=== PATIENT | female | born 1990 | race African-American/Black ===

== ENCOUNTER 2016-07-15 02:28 | Emergency (ER) | payer OTHER ==
--- NOTE | 2016-07-15 02:51 | PDOC ---
History of Present Illness - General History Source: Patient <Steve Crabtree - Last Filed: 07/15/16 03:08> - General History Source: Patient Exam Limitations: No Limitations - History of Present Illness Initial Comments: 07/15/16 03:10 The patient is a 26 year old female with no significant past medical history who presents to the Emergency Department for further evaluation of worsening abdominal pain for 4 days. The patient states that she has had intermittent abdominal pain for 2 years and follows with a Culinary Art Teacher (Dr. Meehan) who recently moved practices. The patient reports that a few months ago she was diagnosed with H Pylori and has been noncompliant with medications because she lost them. The patient reports associated nausea and white foamy vomited anytime she eats. The patient notes that she is able to hold food down when she smokes marijuana before eating. <Arturo Melgar - Last Filed: 07/15/16 03:11> - General Stated Complaint: STOMACH PAIN Time Seen by Provider: 07/15/16 02:50 Past History - Psycho/Social/Smoking Cessation Hx Anxiety: No Suicidal Ideation: No Smoking History: Never smoked Hx Alcohol Use: Yes Drug/Substance Use Hx: No Substance Use Type: Alcohol <LeydaSteve - Last Filed: 07/15/16 03:08> <Arturo Melgar - Last Filed: 07/15/16 03:11> - Past Medical History Allergies/Adverse Reactions: Allergies Allergy/AdvReac Type Severity Reaction Status Date / Time No Known Allergies Allergy Verified 07/15/16 02:55 Home Medications: Ambulatory Orders Famotidine [Pepcid] 40 mg PO BID #60 tablet 07/15/16 Ondansetron [Zofran *Odt*] 4 mg SL TID #30 od.tablet 07/15/16 Review of Systems - Review of Systems Able to Perform ROS?: Yes Comments:: 07/15/16 03:10 CONSTITUTIONAL: Absent: fever, chills, diaphoresis, generalized weakness, malaise, loss of appetite HEENT: Absent: rhinorrhea, nasal congestion, throat pain, throat swelling, difficulty swallowing, mouth swelling, ear pain, eye pain, visual Changes CARDIOVASCULAR: Absent: chest pain, syncope, palpitations, irregular heart rate, lightheadedness , peripheral edema RESPIRATORY: Absent: cough, shortness of breath, dyspnea with exertion, orthopnea, wheezing, stridor, hemoptysis GASTROINTESTINAL: Present: Abdominal pain, nausea, vomiting Absent: diarrhea, constipation, melena, hematochezia GENITOURINARY: Absent: dysuria, frequency, urgency, hesitancy, hematuria, flank pain, genital pain MUSCULOSKELETAL: Absent: myalgia, arthralgia, joint swelling SKIN: Absent: rash, itching, pallor HEMATOLOGIC/IMMUNOLOGIC: Absent: easy bleeding, easy bruising, lymphadenopathy, frequent infections ENDOCRINE: Absent: unexplained weight gain, unexplained weight loss, heat intolerance, cold intolerance NEUROLOGIC: Absent: headache, focal weakness or paresthesias, dizziness, unsteady gait, seizure, mental status changes, bladder or bowel incontinence PSYCHIATRIC: Absent: anxiety, depression, suicidal or homicidal ideation, hallucinations. <Arturo Melgar - Last Filed: 07/15/16 03:11> *Physical Exam - Vital Signs Last Vital Signs Temp Pulse Resp BP Pulse Ox 97 H 14 148/93 100 07/15/16 02:55 07/15/16 02:55 07/15/16 02:55 07/15/16 02:55 - Physical Exam Comments: 07/15/16 03:10 GENERAL: Well developed, well nourished. Awake and alert. In no acute distress. HEENT: Normocephalic, atraumatic. PERRLA, EOMI. No conjunctival pallor. Sclerae are non -icteric. Moist mucous membranes. Oropharynx is clear. NECK: Supple. Full ROM. No JVD. Carotid pulses 2+ and symmetric, without bruits. No thyromegaly. No lymphadenopathy. CARDIOVASCULAR: Regular rate and rhythm. No murmurs, rubs, or gallops. Distal pulses are 2+ and symmetric. PULMONARY: No evidence of respiratory distress. Lungs clear to auscultation bilaterally. No wheezing, rales or rhonchi. ABDOMINAL: Soft. Non-tender. Non-distended. No rebound or guarding. No organomegaly. Normoactive bowel sounds. MUSCULOSKELETAL Normal range of motion at all joints. No bony deformities or tenderness. No CVA tenderness. EXTREMITIES: No cyanosis. No clubbing. No edema. No calf tenderness. SKIN: Warm and dry. Normal capillary refill. No rashes. No jaundice. NEUROLOGICAL: Alert, awake, appropriate. Cranial nerves 2-12 intact. No deficits to light touch and temperature in face, upper extremities and lower extremities. No motor deficits in the in face, upper extremities and lower extremities. Normoreflexic in the upper and lower extremities. Normal speech. Toes are downgoing bilaterally. Gait is normal without ataxia. PSYCHIATRIC: Cooperative. Good eye contact. Appropriate mood and affect. <Arturo Melgar - Last Filed: 07/15/16 03:11> Medical Decision Making - Medical Decision Making 07/15/16 03:09 Dr. Crabtree: The scribe's documentation has been prepared under my direction and personally reviewed by me in its entirery. I confirm that the note above accurately reflects all work, treatment, procedures, and medical decision making performed by me. <Steve Crabtree - Last Filed: 07/15/16 03:08> *DC/Admit/Observation/Transfer - Discharge Dispostion Admit: No <Steve Crabtree - Last Filed: 07/15/16 03:08> - Attestations Scribe Attestion: 07/15/16 03:11 Documentation prepared by Arturo Melgar, acting as medical billing and coding instructor for Steve Crabtree MD. <Arturo Melgar - Last Filed: 07/15/16 03:11> Diagnosis at time of Disposition: Abdominal pain Qualifiers: Abdominal location: generalized Qualified Code(s): R10.84 - Generalized abdominal pain - Discharge Dispostion Disposition: HOME Condition at time of disposition: Stable - Prescriptions Prescriptions: Famotidine [Pepcid] 40 mg PO BID #60 tablet Ondansetron [Zofran *Odt*] 4 mg SL TID #30 od.tablet - Referrals Referrals: Darren King MD [Staff Physician] - - Patient Instructions Printed Discharge Instructions: DI for Abdominal Pain-Adult
[2016-07-15 02:57] VITALS: BP 148/93; PULSE 97; BMI 34.3
[2016-07-15] MEDS ORDERED: ONDANSETRON *ODT* 4 MG TABLET SL ONE (03:06)
[2016-07-15] MEDS ORDERED: PANTOPRAZOLE 40 MG TABLET (FP) PO ONE (03:06)
[2016-07-15] MEDS ORDERED: PANTOPRAZOLE 40 MG TABLET (FP) ONE (03:10)
[2016-07-15] MEDS ORDERED: ONDANSETRON *ODT* 4 MG TABLET ONE (03:10)
[2016-07-15 03:35] LABS: URINE APPEARANCE SLCLOUDY; URINE BILIRUBIN NEGATIVE (NEGATIVE); URINE BLOOD NEGATIVE (NEGATIVE); URINE COLOR YELLOW; URINE GLUCOSE (UA) NEGATIVE (NEGATIVE); URINE KETONE 1+ (NEGATIVE); URINE NITRITE NEGATIVE (NEGATIVE); URINE UROBILINOGEN NEGATIVE E.U./dl (0.2-1.0)
[2016-07-15 03:38] LABS: URINE LEUK ESTERASE TRACE (NEGATIVE); URINE PROTEIN 1+ (NEGATIVE)
[2016-07-15 03:40] LABS: URINE BACTERIA RARE /hpf (NONE SEEN); URINE HYALINE CAST 12 /lpf; URINE MUCUS MANY; URINE RBC 4 /hpf (0-3); URINE WBC 10 /hpf (3-5)
== END 2016-07-15 03:32 | disposition home or self-care (01) ==
LOC: JER 02:28
DX: R10.84 Generalized abdominal pain (principal)
CPT/HCPCS: 81003; 81015; 84703; 87086; 99282-25

== ENCOUNTER 2018-07-08 21:45 | Emergency (ER) | payer OTHER ==
[2018-07-08 21:51] VITALS: BP 120/73; PULSE 87; TEMP 97.2; BMI 29.2
--- NOTE | 2018-07-08 22:29 | PDOC ---
History of Present Illness - General Chief Complaint: Laceration Stated Complaint: EYEBROW LACERATION Time Seen by Provider: 07/08/18 22:00 History Source: Patient Exam Limitations: No Limitations - History of Present Illness Initial Comments: 07/08/18 22:24 Patient states this morning while in [place] struck her left brow and headboard incurring a small laceration to the lateral aspect of brow. States had to catch bus back to the city and was unable to be seen and any emergency department. Denies LOC but states was mildly dazed at the time. Used some hydrogen peroxide and some Neosporin to clean wound but came for evaluation. Denies any drainage from nose or ears, denies any other injury. Occurred: reports: this morning (approximately 13 hours ago) Severity: reports: mild, moderate Pain Location: reports: face Loss of Consciousness: no loss of consciousness Associated Symptoms (Fall): denies symptoms Past History - Travel Traveled outside of the country in the last 30 days: No Close contact w/someone who was outside of country & ill: No - Past Medical History Allergies/Adverse Reactions: Allergies Allergy/AdvReac Type Severity Reaction Status Date / Time No Known Allergies Allergy Verified 07/29/17 10:44 Home Medications: Ambulatory Orders Clindamycin [Cleocin -] 300 mg PO TID #21 capsule 07/29/17 Cancer: No Cardiac Disorders: No CVA: No COPD: No - Surgical History Cholecystectomy: No GI Surgery: No Lung Surgery: No - Suicide/Smoking/Psychosocial Hx Smoking History: Never smoked Have you smoked in the past 12 months: No Information on smoking cessation initiated: No Hx Alcohol Use: No Drug/Substance Use Hx: No Substance Use Type: Alcohol Review of Systems - Review of Systems Able to Perform ROS?: Yes Is the patient limited [place] Citizen proficient: Yes Constitutional: Yes: Symptoms Reported, See HPI, Malaise Respiratory: No: Symptoms reported Cardiac (ROS): No: Symptoms Reported Integumentary: Yes: Symptoms Reported, See HPI, Bruising All Other Systems: Reviewed and Negative *Physical Exam - Vital Signs Last Vital Signs Temp Pulse Resp BP Pulse Ox 97.2 F L 87 20 120/73 100 07/08/18 21:48 07/08/18 21:48 07/08/18 21:48 07/08/18 21:48 07/08/18 21:48 - Physical Exam General Appearance: Yes: Nourished, Appropriately Dressed, Apparent Distress, Mild Distress HEENT: positive: EOMI, WILLIE, Normal ENT Inspection, TMs Normal (no hemotympanum , no drainage from nose or ears, no evidence of skull fracture), Pharynx Normal , Other (has 1 cm horizontal laceration below brow line of left eye. Has no crepitus or step-offs although has a small contusion to the medial aspect of same site.). negative: Rhinorrhea Neck: positive: Other. 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 Steri-Strips applied patient will continue caring for same with ice packs and Motrin for pain relief *DC/Admit/Observation/Transfer Diagnosis at time of Disposition: Facial laceration Qualifiers: Encounter type: initial encounter Qualified Code(s): S01.81XA - Laceration without foreign body of other part of head, initial encounter - Discharge Dispostion Disposition: HOME Condition at time of disposition: Stable Decision to Admit order: No - Referrals - Patient Instructions Printed Discharge Instructions: DI for Laceration Repair Steri-Strips Additional Instructions: Rest, no strenuous activity or exercise until Steri-Strips are lifted No bathing or swimming until Steri-Strips have fallen away, may shower but avoid prolonged periods in water Avoid peeling away as wound will open Steri-Strips should be lifting within 3-7 days, reapply if appears wound needs further time for healing May use Tylenol or Motrin for pain relief Followup with private physician as needed Return to emergency department for worsening swelling, pain, redness or signs of cellulitis If the wound reopens, may not be reclosed as will be a dirty wound and will need to heal by secondary intention - Post Discharge Activity Forms/Work/School Notes: Back to Work
== END 2018-07-08 22:35 | disposition home or self-care (01) ==
LOC: JERFT 21:45
DX: S01.112A Laceration without foreign body of left eyelid and periocular area, initial encounter (principal); W22.8XXA Striking against or struck by other objects, initial encounter; Y93.89 Activity, other specified; Y92.89 Other specified places as the place of occurrence of the external cause; Y99.8 Other external cause status
CPT/HCPCS: 99281-25

== ENCOUNTER 2018-08-07 14:06 | Emergency (ER) | payer OTHER ==
[2018-08-07 14:12] VITALS: BP 120/75; PULSE 92; TEMP 97.9; BMI 28.8
--- NOTE | 2018-08-07 14:13 | PDOC ---
Rapid Medical Evaluation Chief Complaint: Pain, Acute Time Seen by Provider: 08/07/18 14:08 Medical Evaluation: Allergies Allergy/AdvReac Type Severity Reaction Status Date / Time No Known Allergies Allergy Verified 07/29/17 10:44 08/07/18 14:09 28 year old female c/o pain to left knee x 1 day. denies trauma or injury. reports pain to the calf. recent long bus ride to [place] PE: patient alert ox 3. full rom able to leg raise A: leg pain P: US patient to the ER for further management of care. 08/07/18 14:13 Discharge Disposition - Diagnosis Right leg pain - Referrals - Patient Instructions - Post Discharge Activity
--- NOTE | 2018-08-07 14:42 | PDOC ---
History of Present Illness - General Chief Complaint: Pain, Acute Stated Complaint: RT. KNEE PAIN Time Seen by Provider: 08/07/18 14:08 History Source: Patient Exam Limitations: Clinical Condition - History of Present Illness Initial Comments: 08/07/18 14:59 Patient with no significant past medical history present with complaint of intermittent posterior right knee pain comes on with prolonged standing. Patient reported she does a lot of prolonged standing at work and pain comes on after long day at work. Patient reported no pain to touch but pain only comes on with flexion and extension of right knee. Denies any trauma or injury to knee. Denies any other symptoms Timing/Duration: other (2 weeks) Past History - Past Medical History Allergies/Adverse Reactions: Allergies Allergy/AdvReac Type Severity Reaction Status Date / Time No Known Allergies Allergy Verified 08/07/18 14:09 Home Medications: Ambulatory Orders Clindamycin [Cleocin -] 300 mg PO TID #21 capsule 07/29/17 Methocarbamol [Robaxin -] 500 mg PO BID #14 tablet 08/07/18 Naproxen 500 mg PO BID PRN #20 tablet 08/07/18 Cancer: No Cardiac Disorders: No CVA: No COPD: No GI Disorders: Yes - Surgical History Cholecystectomy: No GI Surgery: No Lung Surgery: No - Immunization History Immunization Up to Date: No - Suicide/Smoking/Psychosocial Hx Smoking History: Never smoked Have you smoked in the past 12 months: No Hx Alcohol Use: No Drug/Substance Use Hx: No Substance Use Type: Alcohol Review of Systems - Review of Systems Able to Perform ROS?: Yes Is the patient limited [place] proficient: No Constitutional: No: Weakness HEENTM: No: Symptoms Reported Respiratory: No: Symptoms reported Cardiac (ROS): No: Symptoms Reported ABD/GI: No: Symptoms Reported Musculoskeletal: Yes: See HPI, Joint Pain (posterior right knee pain), Muscle Pain (posterior right knee pain). No: Joint Swelling, Muscle Weakness, Joint Stiffness Neurological: No: Numbness, Paresthesia, Tingling All Other Systems: Reviewed and Negative *Physical Exam - Vital Signs Last Vital Signs Temp Pulse Resp BP Pulse Ox 97.9 F 92 H 18 120/75 100 08/07/18 14:09 08/07/18 14:09 08/07/18 14:09 08/07/18 14:09 08/07/18 14:09 - Physical Exam Comments: 08/07/18 15:01 GENERAL: Well developed, well nourished. Awake and alert. No acute distress. CARDIOVASCULAR: Regular rate and rhythm. No murmurs, rubs, or gallops. PULMONARY: No evidence of respiratory distress. Lungs clear to auscultation bilaterally. No wheezing, rales or rhonchi. MUSCULOSKELETAL : no tenderness over anterior patella or popliteal fossa of right knee. subjective pain with flexion and extension of right knee. FROM of right knee. no swelling or increased warmth of right knee. negative anterior- posterior drawer test of right knee. no joint effusions. EXTREMITIES: No cyanosis. No clubbing. No edema. No calf tenderness. negative horman's sign SKIN: Warm and dry. Normal capillary refill. No rashes. No jaundice. NEUROLOGICAL: Alert, awake, appropriate. No motor deficits in the lower extremities. Gait is normal without ataxia. PSYCHIATRIC: Cooperative. Good eye contact. Appropriate mood and affect. General Appearance: Yes: Nourished, Appropriately Dressed. No: Apparent Distress ED Treatment Course - RADIOLOGY Radiology Studies Ordered: Category Date Time Status KNEE 3 POS-RIGHT [RAD] Stat Radiology 08/07/18 14:40 Ordered Medical Decision Making - Medical Decision Making 08/07/18 15:05 Patient with no significant past medical history present with complaint of intermittent right knee pain which comes on with prolonged standing no other symptoms area patient reported she does a lot of prolonged standing in her line of duty. Denies any trauma or injury to knee. Denies claudication or right calf muscle pain .denies any other symptoms No tenderness over anterior patella or popliteal fossa of right knee. subjective pain with flexion and extension of right knee. FROM of right knee. no swelling or increased warmth of right knee. negative anterior-posterior drawer test of right knee. no joint effusions. No cyanosis. No clubbing. No edema. No calf tenderness. negative horman's sign. X-rays of right knee shows no acute pathology. Very low suspicion for DVT given benign exam. Symptoms likely knee strain. Patient stable for discharge on naproxen and robaxin with heat therapy and orthopedics follow-up *DC/Admit/Observation/Transfer Diagnosis at time of Disposition: Right leg pain Right knee pain Qualifiers: Chronicity: acute Qualified Code(s): M25.561 - Pain in right knee - Discharge Dispostion Disposition: HOME Condition at time of disposition: Stable Decision to Admit order: No - Prescriptions Prescriptions: Methocarbamol [Robaxin -] 500 mg PO BID #14 tablet Naproxen 500 mg PO BID PRN #20 tablet PRN Reason: knee pain - Referrals Referrals: Froilan Daniels DO [Staff Physician] - - Patient Instructions Printed Discharge Instructions: DI for Knee Sprain Additional Instructions: Take prescribed medication as needed for knee pain. rest knee and apply hot compress to knee as needed for pain. Follow-up with referred orthopedics if symptoms does not improve in 3 days. Come back to ED if worsening knee pain with swelling - Post Discharge Activity Forms/Work/School Notes: Back to Work
== END 2018-08-07 15:19 | disposition home or self-care (01) ==
LOC: JERFT 14:06
DX: M25.561 Pain in right knee (principal)
CPT/HCPCS: 73562-TC-RT-FY; 99281-25

== ENCOUNTER 2018-10-01 14:01 | Emergency (ER) | payer OTHER | END 2018-10-01 15:32 | disposition home or self-care (01) | LOC: JERFT 14:01 ==

== ENCOUNTER 2020-01-04 08:16 | Emergency (ER) | payer OTHER ==
[2020-01-04 08:22] VITALS: BP 112/66; PULSE 97; BMI 31.6
[2020-01-04] MEDS ORDERED: KETOROLAC TROMETHAMINE 60 MG/2 ML VIAL IM ONE (09:16)
--- NOTE | 2020-01-04 09:16 | PDOC ---
History of Present Illness - General Chief Complaint: Pain Stated Complaint: L/KNEE PAIN Time Seen by Provider: 01/04/20 08:59 History Source: Patient Exam Limitations: No Limitations - History of Present Illness Initial Comments: 01/04/20 09:03 29y F presents with L leg pain. Pt has a history of L meniscus tear in the past, but was getting better on conservative management however it worsened again yesterday. Pt states she hyperextended her knee when she stood up from bed and felt significant amount of pain on her L anterior knee, particuarly when she is extending her knee and walking. It is painful to walk around. No assoicated numbness/tingling/weakness. no other history of trauma. pt last took alleve at 5pm yesterday without signifian timprovement. Pt tried to call her ortho at [facility] but was unable to reach them. Is this a multiple visit Asthma Patient?: No Past History - Medical History Allergies/Adverse Reactions: Allergies Allergy/AdvReac Type Severity Reaction Status Date / Time No Known Allergies Allergy Verified 09/17/19 13:32 Cancer: No Cardiac Disorders: No CVA: No COPD: No GI Disorders: Yes Other medical history: ortho in past -- partial tear Lt knee mensicus - Surgical History Cholecystectomy: No GI Surgery: No Lung Surgery: No - Reproductive History Is Patient Now?: No - Immunization History Immunization Up to Date: No - Psycho-Social/Smoking History Smoking History: Unknown if ever smoked Have you smoked in the past 12 months: No - Substance Abuse Hx (Audit-C & DAST Scrn) How often the patient has a drink containing alcohol: Monthly or less Score: In Men: 4 or > Positive; In Women: 3 or > Positive: 1 Screen Result (Pos requires Nsg. Audit-10AR): Negative In the last yr the pt used illegal drug/Rx for NonMed reason: No Score: Yes response is considered Positive: 0 Screen Result (Positive result requires Nsg. DAST-10): Negative Review of Systems - Review of Systems Able to Perform ROS?: Yes Comments:: 01/04/20 09:18 Constitutional - no reported Fever, Chills, Musculskelatal - L knee pain no reported back pain, joint swelling skin - no reported bruising, erythema, rash neurological: no reported headache, numbness, focal weakness, tingling, ataxia, hematologic: no reported easy bruising, easy bleeding *Physical Exam - Vital Signs Last Vital Signs Temp Pulse Resp BP Pulse Ox 97 H 18 112/66 98 01/04/20 08:20 01/04/20 08:20 01/04/20 08:20 01/04/20 08:20 - Physical Exam 01/04/20 09:18 GENERAL: The patient is awake, alert, and fully oriented, Nontoxic - in no acute distress. EXTREMITIES: LLE: No focal bony tenderness along the femur, knee, lower extremity/ankle, normal passive range of motion but with anterior knee discomfort when extending her knee to 180 degrees. No effusion appreciated, no erythema, warmth, signs of bruising, crepitus. Neurovascularly intact. Medical Decision Making - Medical Decision Making 01/04/20 09:21 No signs of acute bony injury, do not feel that an x-ray will high yield without focal bony tenderness. possible ligament/meniscal strain, will place the patient in a knee immobilizer and will give patient Toradol will have the patient follow-up with her orthopedist. Discharge - Discharge Information Problems reviewed: Yes Clinical Impression/Diagnosis: Knee pain, left anterior Condition: Stable Disposition: HOME - Admission No - Follow up/Referral Referrals: Jan Marie MD [Staff Physician] - - Patient Discharge Instructions Patient Printed Discharge Instructions: DI for Knee Pain Additional Instructions: Return to the emergency department immediately with ANY new, persistent or worsening symptoms. Take motrin or tylenol for discomfort. Rest, use the knee immobilizer. You MUST call and follow up with your orthopedist in the next 3-4 days for further evaluation of your symptoms. Results were discussed with you. Please make sure your doctor reviews the results of your emergency evaluation. Your Emergency Department visit is not complete without a follow up with your doctor. Print Language: ARMENIAN - Post Discharge Activity Work/Back to School Note: Back to Work
[2020-01-04] MEDS ORDERED: KETOROLAC TROMETHAMINE 30 MG/1 ML VIAL ONE (09:54)
== END 2020-01-04 10:10 | disposition home or self-care (01) ==
LOC: JER 08:16
PROC: 3E0233Z Introduction of Anti-inflammatory into Muscle, Percutaneous Approach (ICD-10-PCS; principal; 2020-01-04)
DX: M25.562 Pain in left knee (principal)
CPT/HCPCS: 99284-25

== ENCOUNTER → 2020-01-20 | Day surgery (SDC) | payer OTHER ==
--- OUTSIDE RECORDS SUMMARY | 2020-01-20 09:02 | XMS ---
:1990 Author Organization [facility] Support Name Relationship Address Phone UNEMPLOYED Unavailable Unavailable [place] [address] [employer] Unavailable Unavailable [place] [address] [facility] Unavailable [address] [facility] [place] [address] UE Unavailable Unavailable Unavailable MAGDALENA WHALEY FRIEND [address] [place] [address] ELICEO GLEASON FATHER [address] [place] [address] Eliceo Gleason Unavailable [address] + [phone] [place] [address] da gleason Unavailable [address] [place] [address] Re-disclosure Warning The records that you are about to access may contain information from federally- assisted alcohol or drug abuse programs. If such information is present, then the following federally mandated warning applies: This information has been disclosed to you from records protected by federal confidentiality rules (42 CFR part 2). The federal rules prohibit you from making any further disclosure of this information unless further disclosure is expressly permitted by the written consent of the person to whom it pertains or as otherwise permitted by 42 CFR part 2. A general authorization for the release of medical or other information is NOT sufficient for this purpose. The Federal rules restrict any use of the information to criminally investigate or prosecute any alcohol or drug abuse patient.The records that you are about to access may contain highly sensitive health information, the redisclosure of which is protected by Article 27-F of the [place] State Public Health law. If you continue you may haveaccess to information: Regarding HIV / AIDS; Provided by facilities licensed or operated by the [facility] Office of Mental Health; or Provided by the [facility] Office for People With Developmental Disabilities. If such information is present, then the following [facility] mandated warning applies: This information has been disclosed to you from confidential records which are protected by state law. State law prohibits you from making any further disclosure of this information without the specific written consent of the person to whom it pertains, or as otherwise permitted by law. Any unauthorized further disclosure in violation of state law may result in a fine or correction sentence or both. A general authorization for the release of medical or other information is NOT sufficient authorization for further disclosure. Allergies and Adverse Reactions Type Description Substance Reaction Status Data Source(s ) No Known Allergies No Known Allergies No Known Allergies eCW3 ([facility]) No Known Allergies No Known Allergies No Known Allergies eCW3 ([facility]) No Known Allergies No Known Allergies No Known Allergies eCW3 ([facility]) No Known Allergies No Known Allergies No Known Allergies eCW3 ([facility]) No Known Allergies No Known Allergies No Known Allergies eCW3 ([facility]) No Information No Information No Information eC W2 ([facility]) Encounters Encounter Providers Location Date Indications Data Source(s ) Outpatient [facility] 02/06/2019 eCW3 ([facility] 12:00:00 AM [facility] EDT - Care) 02/06/2019 12:00:00 AM EDT Outpatient [facility] 01/23/2019 eCW3 ([facility] 12:00:00 AM [facility] EDT - Care) 01/23/2019 12:00:00 AM EDT (DENTAL) [facility] 01/16/2019 eCW3 ([facility] 12:00:00 AM [facility] EDT - Care) 01/16/2019 12:00:00 AM EDT (ROV) Regular [facility] 12/26/2018 eC W3 ([facility] 12:00:00 AM [facility] EDT - Care) 12/26/2018 12:00:00 AM EDT Emergency H 10/14/2018 [facility] 08:23:00 PM [facility] EDT Outpatient [facility] 10/11/2018 eCW3 ([facility] 12:00:00 AM [facility] EDT - Care) 10/11/2018 12:00:00 AM EDT [facility] 04/02/2018 eCW2 ([facility] 12:00:00 [facility]) [facility] 03/07/2018 eCW2 ([facility] 12:00:00 [facility]) [facility] 03/06/2018 eCW2 ([facility] 12[facility]00:00 [facility] Care) [facility] 02/16/2018 eCW2 ([facility] 12[facility]00:00 [facility]) [facility] 02/07/2018 eCW2 ([facility] 12:00:00 [facility]) [facility] 02/06/2018 eCW2 ([facility] 12[facility]00:00 [facility]) [facility] 11/13/2017 eCW2 ([facility] 12[facility]00:00 [facility]) [facility] 09/29/2017 eCW2 ([facility] 12:00:00 [facility]) [facility] 03/08/2017 eCW2 ([facility] 12[facility]00:00 [facility] Care) [facility] 02/01/2017 eCW2 ([facility] 12[facility]00:00 [facility]) [facility] 11/02/2016 eCW2 ([facility] 12[facility]00:00 [facility]) [facility] 09/20/2016 eCW2 ([facility] 12:00:00 [facility]) [facility] 08/23/2016 eCW2 ([facility] 12:00:00 [facility]) [facility] 08/02/2016 eCW2 ([facility] 12[facility]00:00 [facility]) [facility] 07/28/2016 eCW2 ([facility] 12:00:00 [facility]) [facility] 07/23/2016 eCW2 ([facility] 12[facility]00:00 [facility]) [facility] 03/24/2016 eCW2 ([facility] 12[facility]00:00 [facility] Care) [facility] 02/25/2016 eCW2 ([facility] 12:00:00 [facility]) [facility] 02/17/2016 eCW2 ([facility] 12[facility]00:00 [facility]) [facility] 02/10/2016 eCW2 ([facility] 12:00:[facility]) [facility] 02/09/2016 eCW2 ([facility] 12:00:[facility]) [facility] 10/19/2015 eCW2 ([facility] 12[facility]00:00 [facility]) [facility] 10/12/2015 eCW2 ([facility] 12[facility]00:00 [facility]) [facility] 10/12/2015 eCW2 ([facility] 12:00:00 [facility]) [facility] 06/11/2015 eCW2 ([facility] 12[facility]00:00 [facility] Care) [facility] 01/16/2015 eCW2 ([facility] 12:00:00 [facility]) [facility] 01/15/2015 eCW2 ([facility] 12[facility]00:00 [facility]) [facility] 07/08/2014 eCW2 ([facility] 12[facility]00:00 [facility]) [facility] 06/05/2014 eCW2 ([facility] 12[facility]00:00 [facility] Care) [facility] 03/24/2014 eCW2 ([facility] 12:00:00 [facility]) [facility] 03/24/2014 eCW2 ([facility] 12:00:00 [facility] Care) [facility] 12/20/2013 eCW2 ([facility] 12:00:00 [facility] Care) [facility] 12/09/2013 eCW2 ([facility] 12:00:00 [facility]) [facility] 09/11/2013 eCW2 ([facility] 12:00:00 [facility]) [facility] 09/11/2013 eCW2 ([facility] 12:00:00 [facility]) [facility] 09/04/2013 eCW2 ([facility] 12:00:00 [facility]) [facility] 06/21/2013 eCW2 ([facility] 12[facility]00:00 [facility]) [facility] 05/31/2013 eCW2 ([facility] 12:00:00 [facility] Care) [facility] 01/23/2013 eCW2 ([facility] 12:00:00 [facility]) [facility] 11/21/2012 eCW2 ([facility] 12:00:00 [facility]) [facility] 10/17/2012 eCW2 ([facility] 12:00:00 [facility]) [facility] 08/22/2012 eCW2 ([facility] 12:00:00 [facility]) [facility] 08/14/2012 eCW2 ([facility] 12[facility]00:00 [facility]) [facility] 08/09/2012 eCW2 ([facility] 12:00:00 [facility]) [facility] 05/07/2012 eCW2 ([facility] 12:00:00 [facility]) [facility] 10/27/2011 eCW2 ([facility] 12:00:00 [facility]) [facility] 10/25/2011 eCW2 ([facility] 12:00:00 [facility]) [facility] 10/25/2011 eCW2 ([facility] 12:00:00 [facility] Care) [facility] 08/17/2011 eCW2 ([facility] 12:00:00 [facility] Care) [facility] 08/05/2011 eCW2 ([facility] 12:00:00 [facility] Care) [facility] 08/02/2011 eCW2 ([facility] 12:00:00 [facility] Care) [facility] 07/28/2011 eCW2 ([facility] 12:00:00 [facility] Care) [facility] 07/07/2011 eCW2 ([facility] 12:00:00 [facility] Care) [facility] 06/23/2011 eCW2 ([facility] 12:00:00 AM [facility] Care) [facility] 05/18/2011 eCW2 ([facility] 12:00:00 [facility] Care) [facility] 03/24/2011 eCW2 ([facility] 12:00:00 [facility] Care) [facility] 03/14/2011 eCW2 ([facility] 12:00:00 [facility] Care) [facility] 03/11/2011 eCW2 ([facility] 12:00:00 [facility] Care) [facility] 03/04/2011 eCW2 ([facility] 12:00:00 AM [facility] Care) [facility] 07/23/2010 eCW2 ([facility] 12:00:00 [facility] ED[facility] Care) [facility] 07/22/2010 eCW2 ([facility] 12:00:00 [facility] ED[facility] Care) [facility] 04/28/2010 eCW2 ([facility] 12:00:00 AM [facility] Care) [facility] 04/05/2010 eCW2 ([facility] 12:00:00 AM [facility] Care) [facility] 03/26/2010 eCW2 ([facility] 12:00:00 AM [facility] Care) [facility] 05/22/2009 eCW2 ([facility] 12:00:00 AM [facility] Care) [facility] 03/25/2009 eCW2 ([facility] 12:00:00 AM [facility] Care) [facility] 01/29/2009 eCW2 ([facility] 12:00:00 [facility] ED[facility] Care) [facility] 01/01/2009 eCW2 ([facility] 12:00:00 [facility] ED[facility] Care) [facility] 11/27/2008 eCW2 ([facility] 12:00:00 [facility] ED[facility] Care) [facility] 11/14/2008 eCW2 ([facility] 12:00:00 [facility] ED[facility] Care) [facility] 10/30/2008 eCW2 ([facility] 12:00:00 [facility] ED[facility] Care) [facility] 08/21/2008 eCW2 ([facility] 12:00:00 AM [facility] EDT Care) Immunizations Vaccine Date Status Description Data Source(s) New in 2011. IIV4 12/26/2018 completed eCW3 ([facility] 03:42:00 PM EDT Health Care) New in 2011. IIV4 12/26/2018 completed eCW3 ([facility] 03:42:00 PM EDT Health Care) New in 2011. IIV4 12/26/2018 completed eCW3 ([facility] 03:42:00 PM EDT Health Care) New in 2011. IIV4 12/26/2018 completed eCW3 ([facility] 03:42:00 PM EDT Health Care) IIV3. This vaccine code is 02/25/2016 completed e CW3 ([facility] one of two which replace 02:07:00 PM EDT Health Care) CVX 15, influenza, split virus. IIV3. This vaccine code is 02/25/2016 completed e CW3 ([facility] one of two which replace 02:07:00 PM EDT Health Care) CVX 15, influenza, split virus. IIV3. This vaccine code is 02/25/2016 completed e CW3 ([facility] one of two which replace 02:07:00 PM EDT Health Care) CVX 15, influenza, split virus. New in 2011. IIV4 01/15/2015 completed eCW3 ([facility] 09:40:00 AM EDT Health Care) New in 2011. IIV4 01/15/2015 completed eCW3 ([facility] 09:40:00 AM EDT Health Care) New in 2011. IIV4 01/15/2015 completed eCW3 ([facility] 09:40:00 AM EDT Health Care) IIV3. This vaccine code is 06/05/2014 completed e CW3 ([facility] one of two which replace 03:04:00 PM EST Health Care) CVX 15, influenza, split virus. IIV3. This vaccine code is 06/05/2014 completed e CW3 ([facility] one of two which replace 03:04:00 PM EST Health Care) CVX 15, influenza, split virus. IIV3. This vaccine code is 06/05/2014 completed e CW3 ([facility] one of two which replace 03:04:00 PM EST Health Care) CVX 15, influenza, split virus. Tdap 08/09/2012 completed eCW3 ([facility] 02:41:11 PM EDT Health Care) Tdap 08/09/2012 completed eCW3 ([facility] 02:41:11 PM EDT Health Care) Tdap 08/09/2012 completed eCW3 ([facility] 02:41:11 PM EDT Health Care) IIV3. This vaccine code is 05/07/2012 completed e CW3 ([facility] one of two which replace 01:10:21 PM EST Health Care) CVX 15, influenza, split virus. IIV3. This vaccine code is 05/07/2012 completed e CW3 ([facility] one of two which replace 01:10:21 PM EST Health Care) CVX 15, influenza, split virus. IIV3. This vaccine code is 05/07/2012 completed e CW3 ([facility] one of two which replace 01:10:21 PM EST Health Care) CVX 15, influenza, split virus. HPV, quadrivalent 06/23/2011 completed eCW3 ([facility] 07:20:33 PM EST Health Care) HPV, quadrivalent 06/23/2011 completed eCW3 ([facility] 07:20:33 PM EST Health Care) HPV, quadrivalent 06/23/2011 completed eCW3 ([facility] 07:20:33 PM EST Health Care) IIV3. This is one of two 03/24/2011 completed eCW 3 ([facility] codes replacing CVX 15, 08:25:23 PM EST H ealth Care) which is being retired. IIV3. This is one of two 03/24/2011 completed eCW 3 ([facility] codes replacing CVX 15, 08:25:23 PM EST H ealth Care) which is being retired. IIV3. This is one of two 03/24/2011 completed eCW 3 ([facility] codes replacing CVX 15, 08:25:23 PM EST H ealth Care) which is being retired. HPV, quadrivalent 03/26/2010 completed eCW3 ([facility] 01:39:02 PM EST Health Care) HPV, quadrivalent 03/26/2010 completed eCW3 ([facility] 01:39:02 PM [facility] Health Care) HPV, quadrivalent 03/26/2010 completed eCW3 ([facility] 01:39:02 PM [facility] Health Care) IIV3. This is one of two 03/26/2010 completed eCW 3 ([facility] codes replacing CVX 15, 01:38:32 PM EST H ealt Care) which is being retired. IIV3. This is one of two 03/26/2010 completed eCW 3 ([facility] codes replacing CVX 15, 01:38:32 PM EST H ealt Care) which is being retired. IIV3. This is one of two 03/26/2010 completed eCW 3 ([facility] codes replacing CVX 15, 01:38:32 PM EST H ealt Care) which is being retired. HPV, quadrivalent completed eCW3 ([facility]) Novel [id number] completed eCW3 ([facility]) HPV, quadrivalent completed eCW3 ([facility]) Novel [id number] completed eCW3 ([facility]) HPV, quadrivalent completed eCW3 ([facility]) Novel [id number] completed eCW3 ([facility]) No Known Immunizations completed eCW2 ([facility]) Medications Medication Brand Start Product Dose Route Administrative Pharmacy [facility] Indications Reaction Description Data Name Date Form Instructions Instructions Source(s) 21 DAY NuvaRi .0 active NuvaRing eCW 3 Ethinyl ng 2018 {ring 0.12-0.015 ([facility] Estradiol 0.12-0 12:00: } MG/24HR Kevin er 0.580961 .015 00 AM Health MG/HR / MG/24H EDT Care) Etonogestre R l 0.005 MG/HR Vaginal Ring [NuvaRing] NuvaRing 0.12-0.015 MG/24HR 21 DAY NuvaRi .0 active NuvaRing eCW 3 Ethinyl ng 2018 {ring 0.12-0.015 ([facility] Estradiol 0.12-0 12:00: } MG/24HR Kevin er 0.312062 .015 00 AM Health MG/HR / MG/24H EDT Care) Etonogestre R l 0.005 MG/HR Vaginal Ring [NuvaRing] NuvaRing 0.12-0.015 MG/24HR 21 DAY NuvaRi .0 active NuvaRing eCW 3 Ethinyl ng 2018 {ring 0.12-0.015 ([facility] Estradiol 0.12-0 12:00: } MG/24HR Kevin er 0.802020 .015 00 AM Health MG/HR / MG/24H EDT Care) Etonogestre R l 0.005 MG/HR Vaginal Ring [NuvaRing] NuvaRing 0.12-0.015 MG/24HR 21 DAY NuvaRi .0 active NuvaRing eCW 3 Ethinyl ng 2018 {ring 0.12-0.015 ([facility] Estradiol 0.12-0 12:00: } MG/24HR Kevin er 0.454363 .015 00 AM Health MG/HR / MG/24H EDT Care) Etonogestre R l 0.005 MG/HR Vaginal Ring [NuvaRing] NuvaRing 0.12-0.015 MG/24HR 21 DAY NuvaRi .0 active NuvaRing eCW 3 Ethinyl ng 2018 {ring 0.12-0.015 ([facility] Estradiol 0.12-0 12:00: } MG/24HR Kevin er 0.303675 .015 00 AM Health MG/HR / MG/24H EDT Care) Etonogestre R l 0.005 MG/HR Vaginal Ring [NuvaRing] NuvaRing 0.12-0.015 MG/24HR Fluconazole Flucon .0 suspend Flucon azole eCW3 150 MG Oral azole 2018 {tabl ed 150 MG ([facility] Tablet 150 MG 12:00: et} [facility] 00 AM Health EDT Care) Fluconazole Flucon .0 suspend Flucon azole eCW3 150 MG Oral azole 2018 {tabl ed 150 MG ([facility] Tablet 150 MG 12:00: et} [facility] 00 AM Health EDT Care) Fluconazole Flucon .0 suspend Flucon azole eCW3 150 MG Oral azole 2018 {tabl ed 150 MG ([facility] Tablet 150 MG 12:00: et} [facility] 00 AM Health EDT Care) Fluconazole Flucon .0 suspend Flucon azole eCW3 150 MG Oral azole 2018 {tabl ed 150 MG ([facility] Tablet 150 MG 12:00: et} [facility] 00 AM Health EDT Care) Fluconazole Flucon .0 suspend Flucon azole eCW3 150 MG Oral azole 2018 {tabl ed 150 MG ([facility] Tablet 150 MG 12:00: et} [facility] 00 AM Health EDT Care) 21 DAY NuvaRi .0 active NuvaRing eCW 3 Ethinyl ng 2017 {ring 0.12-0.015 ([facility] Estradiol 0.12-0 12:00: } MG/24HR Kevin er 0.480907 .015 00 AM Health MG/HR / MG/24H EDT Care) Etonogestre R l 0.005 MG/HR Vaginal Ring [NuvaRing] NuvaRing 0.12-0.015 MG/24HR [facility] UNK .0 suspend MetroGel -Vag eCW3 ginal 0.75 2018 {appl ed inal 0.75 % ( [facility] % 12:00: [facility] 00 AM on_at Health EDT _bedt Care) abby} 21 DAY NuvaRi .0 active NuvaRing eCW 3 Ethinyl ng 2017 {ring 0.12-0.015 ([facility] E[facility]adiol 0.12-0 12:00: } MG/24HR Kevin er 0.492102 .015 00 AM Health MG/HR / MG/24H EDT Care) Etonogestre R l 0.005 MG/HR Vaginal Ring [NuvaRing] NuvaRing 0.12-0.015 MG/24HR 21 DAY NuvaRi .0 active NuvaRing eCW 3 Ethinyl ng 2017 {ring 0.12-0.015 ([facility]adiol 0.12-0 12:00: } MG/24HR Kevin er 0.408138 .015 00 AM Health MG/HR / MG/24H EDT Care) Etonogestre R l 0.005 MG/HR Vaginal Ring [NuvaRing] NuvaRing 0.12-0.015 MG/24HR [facility] UNK .0 suspend MetroGel -Vag eCW3 ginal 0.75 2018 {appl ed inal 0.75 % ( [facility] % 12:00: [facility] 00 AM on_at Health EDT _bedt Care) abby} Fluconazole Flucon .0 suspend Flucon azole eCW3 150 MG Oral azole 2018 {tabl ed 150 MG ([facility] Tablet 150 MG 12:00: et} [facility] EDT Care) Fluconazole Flucon .0 suspend Flucon azole eCW3 150 MG Oral azole 2018 {tabl ed 150 MG ([facility] Tablet 150 MG 12:00: et} [facility] EDT Care) Fluconazole Flucon .0 suspend Flucon azole eCW3 150 MG Oral azole 2018 {tabl ed 150 MG ([facility] Tablet 150 MG 12:00: et} [facility] EDT Care) 21 DAY NuvaRi .0 active NuvaRing eCW 3 Ethinyl ng 2018 {ring 0.12-0.015 ([facility] Estradiol 0.12-0 12:00: } MG/24HR Kevin er 0.792249 .015 00 AM Health MG/HR / MG/24H EDT Care) Etonogestre R l 0.005 MG/HR Vaginal Ring [NuvaRing] NuvaRing 0.12-0.015 MG/24HR Fluconazole Flucon .0 suspend Flucon azole eCW3 150 MG Oral azole 2018 {tabl ed 150 MG ([facility] Tablet 150 MG 12:00: et} [facility] EDT Care) Fluconazole Flucon .0 suspend Flucon azole eCW3 150 MG Oral azole 2018 {tabl ed 150 MG ([facility] Tablet 150 MG 12:00: et} [facility] EDT Care) MetroGel-Va UNK .0 suspend MetroGel -Vag eCW3 ginal 0.75 2018 {appl ed inal 0.75 % ( [facility] % 12:00: [facility] 00 AM on_at Health EDT _bedt Care) abby} 21 DAY NuvaRi .0 active NuvaRing eCW 3 Ethinyl ng 2018 {ring 0.12-0.015 ([facility] Estradiol 0.12-0 12:00: } MG/24HR Kevin er 0.414072 .015 00 AM Health MG/HR / MG/24H EDT Care) Etonogestre R l 0.005 MG/HR Vaginal Ring [NuvaRing] NuvaRing 0.12-0.015 MG/24HR [facility] UNK .0 suspend MetroGel -Vag eCW3 ginal 0.75 2018 {appl ed inal 0.75 % ( [facility] % 12:00: [facility] 00 AM on_at Health EDT _bedt Care) abyb} MetroGel-Va UNK .0 suspend MetroGel -Vag eCW3 ginal 0.75 2018 {appl ed inal 0.75 % ( [facility] % 12:00: [facility] 00 AM on_at Health EDT _bedt Care) abby} Sertraline Zoloft .0 suspend Zoloft 25 MG eCW3 25 MG Oral 25 MG 2018 {tabl ed ([facility] Tablet 12:00: et} [facility] [Zoloft] 00 AM Health Zoloft 25 EDT Care) MG Sertraline Zoloft .0 suspend Zoloft 25 MG eCW3 25 MG Oral 25 MG 2018 {tabl ed ([facility] Tablet 12:00: et} [facility] [Zoloft] 00 AM Health Zoloft 25 EDT Care) MG Sertraline Zoloft .0 suspend Zoloft 25 MG eCW3 25 MG Oral 25 MG 2018 {tabl ed ([facility] Tablet 12:00: et} [facility] [Zoloft] 00 AM Health Zoloft 25 EDT Care) MG Sertraline Zoloft .0 suspend Zoloft 25 MG eCW3 25 MG Oral 25 MG 2018 {tabl ed ([facility] Tablet 12:00: et} [facility] [Zoloft] 00 AM Health Zoloft 25 EDT Care) MG Sertraline Zoloft .0 suspend Zoloft 25 MG eCW3 25 MG Oral 25 MG 2018 {tabl ed ([facility] Tablet 12:00: et} [facility] [Zoloft] 00 AM Health Zoloft 25 EDT Care) MG Loratadine Lorata .0 suspend Loratad ine eCW3 10 MG Oral dine 2017 {tabl ed 10 MG ([facility] Tablet 10 MG 12:00: et} [facility] 00 AM Health EDT Care) Loratadine Lorata .0 suspend Loratad ine eCW3 10 MG Oral dine 2017 {tabl ed 10 MG ([facility] Tablet 10 MG 12:00: et} [facility] 00 AM Health EDT Care) Loratadine Lorata .0 suspend Loratad ine eCW3 10 MG Oral dine 2017 {tabl ed 10 MG ([facility] Tablet 10 MG 12:00: et} [facility] 00 AM Health EDT Care) Loratadine Lorata .0 suspend Loratad ine eCW3 10 MG Oral dine 2017 {tabl ed 10 MG ([facility] Tablet 10 MG 12:00: et} [facility] 00 AM Health EDT Care) Loratadine Lorata .0 suspend Loratad ine eCW3 10 MG Oral dine 2017 {tabl ed 10 MG ([facility] Tablet 10 MG 12:00: et} [facility] 00 AM Health EDT Care) Norelgestro UNK .0 suspend Norelges trom eCW3 min-Eth 2017 {[facility] ed in-Eth ([facility] Estradiol 12:00: h_to_ Estradiol Ri karis 150-35 00 AM skin} 150-35 Health mcg/24hr EDT mcg/24hr Care) Norelgestro UNK .0 suspend Norelges trom eCW3 min-Eth 2016 {[facility] ed in-Eth ([facility] Estradiol 12:00: h_to_ Estradiol Ri karis 150-35 00 AM skin} 150-35 Health mcg/24hr EDT mcg/24hr Care) Norelgestro UNK .0 suspend Norelges trom eCW3 min-Eth 2016 {[facility] ed in-Eth ([place] Estradiol 12:00: h_to_ Estradiol Ri karis 150-35 00 AM skin} 150-35 Health mcg/24hr EDT mcg/24hr Care) Norelgestro UNK .0 suspend Norelges trom eCW3 min-2016 {[facility] ed in-Eth ([place] Estradiol 12:00: h_to_ Estradiol Ri karis 150-35 00 AM skin} 150-35 Health mcg/24hr EDT mcg/24hr Care) Norelgestro UNK .0 suspend Norelges trom eCW3 min-2016 {[facility] ed in-Eth ([place] Estradiol 12:00: h_to_ Estradiol Ri karis 150-35 00 AM skin} 150-35 Health mcg/24hr EDT mcg/24hr Care) ORTHO EVRA UNK 03/24/ suspend ORTHO EVR A eCW3 150-35 2015 ed 150-35 ([place] MCG/24HR 12:00: MCG/24HR [place] 00 AM Health EST Care) ORTHO EVRA UNK 03/24/ suspend ORTHO EVR A eCW3 150-35 2015 ed 150-35 ([place] MCG/24HR 12:00: MCG/24HR [place] 00 AM Health EST Care) ferrous Ferrou .0 suspend Ferrous eC W3 sulfate 325 s 2015 {tabl ed Sulfate 325 ([place] MG Oral Sulfat 12:00: et} (65 Fe) MG Ri karis Tablet e 325 00 AM Health Ferrous (65 EST Care) Sulfate 325 Fe) MG (65 Fe) MG ORTHO EVRA UNK 03/24/ suspend ORTHO EVR A eCW3 150-35 2015 ed 150-35 ([place] MCG/24HR 12:00: MCG/24HR [place] 00 AM Health EST Care) ferrous Ferrou .0 suspend Ferrous eC W3 sulfate 325 s 2015 {tabl ed Sulfate 325 ([place] MG Oral Sulfat 12:00: et} (65 Fe) MG Ri karis Tablet e 325 00 AM Health Ferrous (65 EST Care) Sulfate 325 Fe) MG (65 Fe) MG ferrous Ferrou 1.0 suspend Ferrous eC W3 sulfate 325 s 2015 {tabl ed Sulfate 325 ([place] MG Oral Sulfat 12:00: et} (65 Fe) MG Ri karis Tablet e 325 00 AM Health Ferrous (65 EST Care) Sulfate 325 Fe) MG (65 Fe) MG ORTHO EVRA UNK 03/24/ suspend ORTHO EVR A eCW3 150-35 2015 ed 150-35 ([place] MCG/24HR 12:00: MCG/24HR [place] 00 AM Health EST Care) ORTHO EVRA UNK 03/24/ suspend ORTHO EVR A eCW3 150-35 2015 ed 150-35 ([place] MCG/24HR 12:00: MCG/24HR [place] 00 AM Health EST Care) ferrous Ferrou .0 suspend Ferrous eC W3 sulfate 325 s 2016 {tabl ed Sulfate 325 ([place] MG Oral Sulfat 12:00: et} (65 Fe) MG Ri karis Tablet e 325 00 AM Health Ferrous (65 EST Care) Sulfate 325 Fe) MG (65 Fe) MG ferrous Ferrou .0 suspend Ferrous eC W3 sulfate 325 s 2015 {tabl ed Sulfate 325 ([place] MG Oral Sulfat 12:00: et} (65 Fe) MG Ri karis Tablet e 325 00 AM Health Ferrous (65 EST Care) Sulfate 325 Fe) MG (65 Fe) MG Clarithromy Clarit .0 suspend Clarit hromyc eCW3 smita 500 MG hromyc 2015 {tabl ed in 500 MG ( [place] Oral Tablet in 500 12:00: et} [place] r MG 00 AM Health EDT Care) Omeprazole Omepra .0 suspend Omepraz ole eCW3 40 MG zole 2015 {caps ed 40 MG ([place] Delayed 40 MG 12:00: ule} [place] Release 00 AM Health Oral EDT Care) Capsule Amoxicillin Amoxic 2.0 suspend Amoxic illin eCW3 500 MG Oral illin 2016 {tabl ed 500 MG ([facility] Tablet 500 MG 12:00: ets} [place] 00 AM Health EDT Care) Omeprazole Omepra .0 suspend Omepraz ole eCW3 40 MG zole 2016 {caps ed 40 MG ([place] Delayed 40 MG 12:00: ule} [place] Release 00 AM Health Oral EDT Care) Capsule Amoxicillin Amoxic 2.0 suspend Amoxic illin eCW3 500 MG Oral illin 2016 {tabl ed 500 MG ([facility] Tablet 500 MG 12:00: ets} [place] 00 AM Health EDT Care) Amoxicillin Amoxic 2.0 suspend Amoxic illin eCW3 500 MG Oral illin 2016 {tabl ed 500 MG ([facility] Tablet 500 MG 12:00: ets} [place] 00 AM Health EDT Care) Clarithromy Clarit .0 suspend Clarit hromyc eCW3 smita 500 MG hromyc 2016 {tabl ed in 500 MG ( [place] Oral Tablet in 500 12:00: et} [place] MG 00 AM Health EDT Care) Clarithromy Clarit .0 suspend Clarit hromyc eCW3 smita 500 MG hromyc 2016 {tabl ed in 500 MG ( [place] Oral Tablet in 500 12:00: et} [place] MG 00 AM Health EDT Care) Omeprazole Omepra .0 suspend Omepraz ole eCW3 40 MG zole 2016 {caps ed 40 MG ([place] Delayed 40 MG 12:00: ule} [place] Release 00 AM Health Oral EDT Care) Capsule Clarithromy Clarit .0 suspend Clarit hromyc eCW3 smita 500 MG hromyc 2016 {tabl ed in 500 MG ( [place] Oral Tablet in 500 12:00: et} [place] MG 00 AM Health EDT Care) Amoxicillin Amoxic 2.0 suspend Amoxic illin eCW3 500 MG Oral illin 2016 {tabl ed 500 MG ([facility] Tablet 500 MG 12:00: ets} [place] 00 AM Health EDT Care) Amoxicillin Amoxic 2.0 suspend Amoxic illin eCW3 500 MG Oral illin 2016 {tabl ed 500 MG ([facility] Tablet 500 MG 12:00: ets} [place] 00 AM Health EDT Care) Clarithromy Clarit .0 suspend Clarit hromyc eCW3 smita 500 MG hromyc 2016 {tabl ed in 500 MG ( [place] Oral Tablet in 500 12:00: et} [place] MG 00 AM Health EDT Care) Omeprazole Omepra .0 suspend Omepraz ole eCW3 40 MG zole 2016 {caps ed 40 MG ([place] Delayed 40 MG 12:00: ule} [place] Release 00 AM Health Oral EDT Care) Capsule Omeprazole Omepra .0 suspend Omepraz ole eCW3 40 MG zole 2016 {caps ed 40 MG ([place] Delayed 40 MG 12:00: ule} [place] Release 00 AM Health Oral EDT Care) Capsule Multivitami Multiv .0 suspend Multiv itamin eCW3 ns - itamin 2016 {tabl ed s - ([place] s - 12:00: et} [place] 00 AM Health EDT Care) Multivitami Multiv .0 suspend Multiv itamin eCW3 ns - itamin 2016 {tabl ed s - ([place] s - 12:00: et} [place] 00 AM Health EDT Care) Multivitami Multiv .0 suspend Multiv itamin eCW3 ns - itamin 2016 {tabl ed s - ([place] s - 12:00: et} [place] 00 AM Health EDT Care) Multivitami Multiv .0 suspend Multiv itamin eCW3 ns - itamin 2016 {tabl ed s - ([place] s - 12:00: et} [place] 00 AM Health EDT Care) Multivitami Multiv .0 suspend Multiv itamin eCW3 ns - itamin 2016 {tabl ed s - ([place] s - 12:00: et} [place] 00 AM Health EDT Care) Unknown complet eCW2 Medications ed ([facility]) Metronidazo UNK suspend Metronidaz ol eCW3 le ed e ([facility]) Metronidazo UNK suspend Metronidaz ol eCW3 le ed e ([facility]) Metronidazo UNK suspend Metronidaz ol eCW3 le ed e ([facility]) Metronidazo UNK suspend Metronidaz ol eCW3 le ed e ([facility]) Amoxicillin amoxic 1 complet Dago nt 875 MG / illin- ed [facility] Clavulanate pot Medical 125 MG Oral clavul Center Tablet anate amoxicillin 875 -pot mg-125 clavulanate mg 875 mg-125 Tablet mg Tablet, , Ordered By: Atilio garcia By: Olamide Balderas, s: 1 tablet PADire oral every ctions twelve : 1 hours with tablet or after oral food every twelve hours with or after food Ibuprofen ibupro 1 complet [facility] 800 MG Oral fen ed Shanthi Tablet 800 mg Medical ibuprofen Tablet Center 800 mg , Tablet, Ordere Ordered By: d By: Andrey Gonsales PADirection PADyoshi s: 1 tablet ctions oral every : 1 eight hours tablet PRN oral pain-modera every te eight hours PRN pain-m oderat e Metronidazo UNK suspend Metronidaz ol eCW3 le ed e ([facility]) Insurance Providers Payer name Policy type Policy ID Covered Covered democrat's Policy P wicho / Coverage democrat ID relationship to Noriega Inf ormation type noriega DEBORAH [id number] SP [id number] ESSENTIAL PLAN 1 2 DEBORAH [id number] SP [id number] HEALTH NON CAP DEBORAH W [id number] 01 [id number] DEBORAH W [id number] Problems, Conditions, and Diagnoses Code Display Name Description Problem Type Effective Data Sour ce(s) Dates N94.9 Disorder of female Adnexal Problem 12/26/2018 eCW3 ( [place] genital organs tenderness, left 12:00:00 AM [facility] EDT Care) N94.10 Pain in female Dyspareunia in Problem 12/26/2018 eCW3 ( [place] genitalia on female 12:00:00 AM [facility] EDT Care) 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 Problem 11/13/2017 eCW3 ( [place] depression depression 12:00:00 AM [facility] EDT Care) F32.0 Mild depression Mild depression Problem 11/13/2017 eCW3 ([place] 12:00:00 AM [facility] EDT Care) Z13.9 Screening procedure Encounter for Problem 11/13/2017 eC W3 ([place] screening, 12:00:00 AM [facility] unspecified EDT Care) F32.0 Mild depression Mild depression Problem 11/13/2017 eCW2 ([place] 12:00:00 AM [facility] EDT Care) 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 Problem 11/13/2017 eCW2 ( [place] depression depression 12:00:00 AM [facility] EDT Care) Z13.9 Screening procedure Encounter for Problem 11/13/2017 eC W2 ([place] screening, 12:00:00 AM [facility] unspecified EDT Care) J30.2 Seasonal allergy Seasonal allergies Problem 08/23/2016 eCW3 ([place] 12:00:00 AM [facility] EDT Care) J30.2 Seasonal allergy Seasonal allergies Problem 08/23/2016 eCW2 ([place] 12:00:00 AM [facility] EDT Care) E66.9 Obesity (BMI Obesity (BMI Problem 07/23/2016 eCW3 ([facility] 30-39.9) 30-39.9) 12:00:00 AM [facility] EDT Care) E66.9 Obesity (BMI Obesity (BMI Problem 07/23/2016 eCW2 ([facility] 30-39.9) 30-39.9) 12:00:00 AM [facility] EDT Care) Z30.40 Encounter for Encounter for Problem 07/21/2016 eCW3 ([facility] surveillance of surveillance of 12:00:00 AM [facility] contraceptives, contraceptives, EDT Care ) unspecified unspecified contraceptive contraceptive A04.8 H. pylori infection H. pylori Problem 07/21/2016 eCW3 ([place] infection 12:00:00 AM [facility] EDT Care) Z30.40 Encounter for Encounter for Problem 07/21/2016 eCW2 ([facility] surveillance of surveillance of 12:00:00 AM [facility] contraceptives, contraceptives, EDT Care ) unspecified unspecified contraceptive contraceptive A04.8 H. pylori infection H. pylori Problem 07/21/2016 eCW2 ([place] infection 12:00:00 AM [facility] EDT Care) N92.0 Excessive and Heavy menses Problem 03/24/2016 eCW3 ([facility] frequent 12:00:00 AM [facility] menstruation EST Care) N92.0 Excessive and Heavy menses Problem 03/24/2016 eCW2 ([facility] frequent 12:00:00 AM [facility] menstruation EST Care) K02.9 Dental caries, DENTAL CARIES, Diagnosis 10/14/2018 [facility] unspecified UNSPECIFIED 08:23:[address] EDT K08.89 Other specified OTHER SPECIFIED Diagnosis 10/14/2018 [facility] disorders of teeth DISORDERS OF TEETH 08:23:00 PM [facility] and supporting AND SUPPORTING EDT structures STRUCTURES Surgeries/Procedures Procedure Description Date Indications Data Source(s) No Known procedures No Known procedures e CW2 ([facility]) Social History Code Duration Value Status Description Data Source(s ) Smoking 02/06/2019 Never Smoker completed Never Smoker eCW3 ([facility] 12:00:00 AM [facility]) Smoking 02/06/2019 Never Smoker completed Never Smoker eCW3 ([facility] 12:00:00 AM [facility]) Smoking 02/06/2019 Never Smoker completed Never Smoker eCW3 ([facility] 12:00:00 AM [facility]) Smoking 02/06/2019 Never Smoker completed Never Smoker eCW3 ([facility] 12:00:00 AM [facility]) Smoking 02/06/2019 Never Smoker completed Never Smoker eCW3 ([facility] 12:00:00 AM [facility]) Never Smoker completed Never Smoker eCW3 ([facility]) Never Smoker completed Never Smoker eCW3 ([facility]) Never Smoker completed Never Smoker eCW3 ([facility]) Never Smoker completed Never Smoker eCW3 ([facility]) Never Smoker completed Never Smoker eCW3 ([facility]) Smoking Unknown if ever completed Unknown if ever eCW2 ([facility] smoked smoked [facility]) Smoking Unknown if ever completed Unknown if ever [facility] smoked smoked [facility] Vital Signs ID Date Data Source UNK Name Value Range Interpretation Code Description Data Source(s) Diastolic blood 78 mm[Hg] 78 mm[Hg] eCW3 ([facility]) Systolic blood 112 mm[Hg] 112 mm[Hg] eCW3 ([facility]) Body temperature 98.4 [degF] 98.4 [degF] eCW3 ( [facility]) Heart rate 20 /min 20 /min eCW3 ([facility]) Body mass index 31.11 kg/m2 31.11 kg/m2 eCW3 ([facility] (BMI) [Ratio] [facility]) Body weight 189 [lb_av] 189 [lb_av] eCW3 ([facility]) Body height 65.35 [in_i] 65.35 [in_i] eCW3 ([facility]) Diastolic blood 78 mm[Hg] 78 mm[Hg] eCW3 ([facility]) Systolic blood 119 mm[Hg] 119 mm[Hg] eCW3 ([facility]) Body temperature 98.3 [degF] 98.3 [degF] eCW3 ( [facility]) Heart rate 20 /min 20 /min eCW3 ([facility]) Body mass index 31.11 kg/m2 31.11 kg/m2 eCW3 ([facility] (BMI) [Ratio] [facility]) Body weight 189 [lb_av] 189 [lb_av] eCW3 ([facility]) Body height 65.35 [in_i] 65.35 [in_i] eCW3 ([facility]) Diastolic blood 63 mm[Hg] 63 mm[Hg] eCW3 ([facility]) Systolic blood 112 mm[Hg] 112 mm[Hg] eCW3 ([facility]) Diastolic blood 70 mm[Hg] 70 mm[Hg] eCW3 ([facility]) Systolic blood 107 mm[Hg] 107 mm[Hg] eCW3 ([facility]) Body temperature 98.1 [degF] 98.1 [degF] eCW3 ( [facility]) Body mass index 31.44 kg/m2 31.44 kg/m2 eCW3 ([facility] frank (BMI) [Ratio] [facility]) Body weight 191 [lb_av] 191 [lb_av] eCW3 ([facility]) Body height 65.35 [in_i] 65.35 [in_i] eCW3 ([facility]) Body weight 87.865548 kg 87.412014 kg [facility] Body temperature 37.370427 37.040179 [facility] Respiratory rate 18 /min 18 /min [facility] Oxygen saturation 100 % 100 % [facility] blood [facility] by Pulse oximetry Heart rate 87 /min 87 /min [facility] Diastolic blood 91 mm[Hg] 91 mm[Hg] [facility] pressure [facility] Systolic blood 139 mm[Hg] 139 mm[Hg] [facility] pressure [facility] Diastolic blood 73 mm[Hg] 73 mm[Hg] eCW3 ([facility]) Systolic blood 108 mm[Hg] 108 mm[Hg] eCW3 ([facility]) Body temperature 98.2 [degF] 98.2 [degF] eCW3 ( [facility]) Body mass index 31.77 kg/m2 31.77 kg/m2 eCW3 ([place] [facility] (BMI) [Ratio] [facility]) Body weight 193 [lb_av] 193 [lb_av] eCW3 ([facility]) Body height 65.35 [in_i] 65.35 [in_i] eCW3 ([facility]) Patient Treatment Plan of Care Planned Activity Planned Date Details Description Data Source (s) Ibuprofen 800 MG Oral [facility] Amoxicillin 875 MG / [facility] Clavulanate 125 MG Oral Cent er Tablet
--- NOTE | 2020-01-21 10:50 | PATH ---
Surgical Pathology Report Patient Name: NAHOMY PRETTY [facility]. Rec. #: [id number] /Age/Gender: 1990 (Age: 29) / F Account: [id number] Location: RADIOLOGY [facility] Taken: 01/20/2020 Received: 01/20/2020 Reported: 01/21/2020 Physicians: Tyrell Boyce Specimen(s) Received BREAST, LEFT, 3:00, ULTRASOUND GUIDED CORE BIOPSY: Clinical History Non-palpable lesion Ultrasound findings: Probably benign Final Diagnosis BREAST, LEFT, 3:00, ULTRASOUND GUIDED CORE BIOPSY: FIBROADENOMA. Electronically Signed Marycruz Gonsalves M.D. Gross Description Received in formalin labeled "left 3:00," are 5 bai-yellow, cylindrical portions of fibroadipose tissue ranging from 0.3-0.8 cm in length and averaging 0.1 cm in diameter. The specimens are submitted in toto in one cassette. Time to formalin fixation: Less than one minute Total formalin fixation time: Approximately 8 hours. /01/20/2020 [facility]01/20/2020
== END | disposition home or self-care (01) ==
LOC: JRADUS-SUR 08:52
PROVIDERS: ATTEND Nurse Practitioner Family
PROC: 0H9U3ZX Drainage of Left Breast, Percutaneous Approach, Diagnostic (ICD-10-PCS; principal; 2020-01-20)
DX: D24.2 Benign neoplasm of left breast (principal)
CPT/HCPCS: 19083; 87899; 88305-TC; A4648

== ENCOUNTER 2020-04-28 19:34 | Emergency (ER) | payer OTHER ==
[2020-04-28 19:48] VITALS: BP 132/85; PULSE 113; TEMP 97.6; BMI 30.4
[2020-04-28] MEDS ORDERED: MECLIZINE HCL 25 MG TABLET (FP) PO ONE (21:02)
[2020-04-28] MEDS ORDERED: AMOX TR/POT CLAV 875MG/125MG TABLETS (FP) PO ONE (21:02)
[2020-04-28] MEDS ORDERED: AMOX TR/POT CLAV 875MG/125MG TABLETS (FP) ONE (21:04)
[2020-04-28] MEDS ORDERED: MECLIZINE HCL 25 MG TABLET (FP) ONE (21:04)
== END 2020-04-28 22:44 | disposition home or self-care (01) ==
LOC: JER 19:34
DX: H66.003 Acute suppurative otitis media without spontaneous rupture of ear drum, bilateral (principal); K04.7 Periapical abscess without sinus
CPT/HCPCS: 99283-25

== ENCOUNTER 2020-09-18 20:11 | Emergency (ER) | payer OTHER ==
[2020-09-18 20:33] VITALS: BP 115/79; PULSE 113; TEMP 99.3; BMI 30.4
[2020-09-18] MEDS ORDERED: ALBUTEROL SO4 2.5/IPRATROPIUM 0.5 INH SOL 3 ML VIAL.NEB. NEB ONE (21:13)
[2020-09-18] MEDS ORDERED: ALBUTEROL SO4 0.083% IH SOL 2.5 MG/3 ML VIAL.NEB. NEB ONE (21:14)
== END 2020-09-18 22:52 | disposition home or self-care (01) ==
LOC: JER 20:11
PROC: 3E0F7GC Introduction of Other Therapeutic Substance into Respiratory Tract, Via Natural or Artificial Opening (ICD-10-PCS; principal; 2020-09-18)
DX: J40 Bronchitis, not specified as acute or chronic (principal)
CPT/HCPCS: 71046-TC-FY; 93005; 93010; 99284-25; C9803; U0003; U0005

== ENCOUNTER 2021-04-14 20:47 | Emergency (ER) | payer OTHER ==
[2021-04-14 21:05] VITALS: BP 115/78; PULSE 110; TEMP 98.9; BMI 30.7
== END 2021-04-14 23:56 | disposition home or self-care (01) ==
LOC: JER 20:47
DX: M25.512 Pain in left shoulder (principal); M25.572 Pain in left ankle and joints of left foot
CPT/HCPCS: 73030-TC-LT-FY; 73610-TC-LT-FY; 73630-TC-LT; 99284-25; C9803; U0003; U0005

== ENCOUNTER 2021-05-01 13:01 | Emergency (ER) | payer OTHER ==
[2021-05-01 13:41] VITALS: PULSE 76; TEMP 97.8; BMI 25.7
[2021-05-01] MEDS ORDERED: ONDANSETRON 4 MG/2 ML VIAL ONE (15:00)
[2021-05-01] MEDS ORDERED: FAMOTIDINE 20 MG/50 ML IVPB 20 MG/50 ML MG IVPB ONE ×2 (15:00→15:02)
[2021-05-01] MEDS ORDERED: SODIUM CHLORIDE 0.9% 500 ML INFUS.BAG IV ONE (15:02)
[2021-05-01] MEDS ORDERED: ONDANSETRON 4 MG/2 ML VIAL IVPUSH ONE (15:02)
[2021-05-01 15:33] LABS: BASO % 0.2 % (0-2.0); EOS % 0.1 % (0-4.5); HEMATOCRIT 38.8 % (32.4-45.2); HEMOGLOBIN 13.1 GM/dL (10.7-15.3); LYMPH % 7.8 % (8-40); MCH 26.6 pg (25.7-33.7); MCHC 33.6 g/dl (32.0-36.0); MEAN CELL VOLUME 79.1 fl (80-96); MEAN PLT VOLUME 8.5 fl (7.5-11.1); MONO % 1.6 % (3.8-10.2); NEUT % 90.3 % (42.8-82.8); PLATELET COUNT 328 10^3/uL (134-434); RBC 4.91 M/mm3 (3.60-5.2); RDW 14.4 % (11.6-15.6); WHITE BLOOD COUNT 8.8 K/mm3 (4.0-10.0)
[2021-05-01 15:43] LABS: CHLORIDE 108 mmol/L (98-107)
[2021-05-01 15:46] LABS: ALBUMIN 4.1 g/dl (3.4-5.0); CALCIUM 9.1 mg/dL (8.5-10.1); GLUCOSE,RANDOM 98 mg/dL (74-106)
[2021-05-01 15:49] LABS: CREATININE 0.8 mg/dL (0.55-1.3); SGOT/AST 13 U/L (15-37); SGPT/ALT 22 U/L (13-61)
[2021-05-01 15:51] LABS: BILIRUBIN,TOTAL 0.4 mg/dL (0.2-1); TOT PROT 8.2 g/dl (6.4-8.2)
[2021-05-01 15:52] LABS: ALK PHOS 56 U/L (45-117)
[2021-05-01 15:54] LABS: ANION GAP 11 MMOL/L (8-16); CO2 23 mmol/L (21-32); SODIUM 142 mmol/L (136-145)
[2021-05-01] MEDS ORDERED: METOCLOPRAMIDE HCL INJECTION 10 MG/2 ML VIAL IVPUSH ONE (17:40)
[2021-05-01] MEDS ORDERED: METOCLOPRAMIDE HCL INJECTION 10 MG/2 ML VIAL ONE (18:01)
[2021-05-01 18:31] LABS: PH,URINE 5.5 (5.0-8.0); URINE APPEARANCE CLEAR; URINE BILIRUBIN NEGATIVE (NEGATIVE); URINE COLOR YELLOW; URINE GLUCOSE (UA) NEGATIVE (NEGATIVE); URINE KETONE 3+ (NEGATIVE); URINE LEUK ESTERASE NEGATIVE (NEGATIVE); URINE NITRITE NEGATIVE (NEGATIVE); URINE PROTEIN NEGATIVE (NEGATIVE); URINE UROBILINOGEN 0.2 mg/dL (0.2-1.0)
[2021-05-01 20:26] VITALS: BP 126/80
== END 2021-05-01 19:10 | disposition home or self-care (01) ==
LOC: JER 13:01
PROC: 3E033GC Introduction of Other Therapeutic Substance into Peripheral Vein, Percutaneous Approach (ICD-10-PCS; principal; 2021-05-01)
PROC: 3E033GC Introduction of Other Therapeutic Substance into Peripheral Vein, Percutaneous Approach (ICD-10-PCS; 2021-05-01)
PROC: 3E033GC Introduction of Other Therapeutic Substance into Peripheral Vein, Percutaneous Approach (ICD-10-PCS; 2021-05-01)
DX: R11.2 Nausea with vomiting, unspecified (principal)
CPT/HCPCS: 36415; 80053; 81003; 84702; 84703; 85025; 87086; 99284-25

== ENCOUNTER 2022-05-12 19:29 | Emergency (ER) | payer OTHER ==
[2022-05-12 19:48] VITALS: RESP 18; TEMP 98.7; BMI 28.7
[2022-05-12] MEDS ORDERED: MAG HYDROX/AL HYDROX/SIMETH 30 ML UNIT-DOSE CUP PO ONE (21:11)
[2022-05-12] MEDS ORDERED: FAMOTIDINE 10 MG TABLET PO ONE (21:11)
[2022-05-12] MEDS ORDERED: MAG HYDROX/AL HYDROX/SIMETH 30 ML UNIT-DOSE CUP ONE (21:20)
[2022-05-12] MEDS ORDERED: FAMOTIDINE 10 MG TABLET ONE (21:20)
[2022-05-12 22:16] VITALS: BP 101/59; PULSE 74
== END 2022-05-12 22:38 | disposition home or self-care (01) ==
LOC: JER 19:29
DX: R00.2 Palpitations (principal); R07.89 Other chest pain
CPT/HCPCS: 71046-TC-FY; 93005; 93010; 99284-25

== ENCOUNTER 2023-05-02 11:10 | Emergency (ER) | payer OTHER ==
[2023-05-02 11:42] VITALS: BP 124/79; PULSE 77; RESP 17; TEMP 98.1; BMI 28.0
[2023-05-02 13:15] LABS: EPI CELLS 12 /uL (0-25.1); HYALINE CASTS 0 /uL (0-3.1); URINE APPEARANCE CLEAR; URINE BACTERIA 40 /uL (0-1359); URINE BILIRUBIN NEGATIVE (NEGATIVE); URINE COLOR YELLOW; URINE GLUCOSE (UA) NEGATIVE (NEGATIVE); URINE KETONE TRACE (NEGATIVE); URINE LEUK ESTERASE NEGATIVE (NEGATIVE); URINE NITRITE NEGATIVE (NEGATIVE); URINE PROTEIN NEGATIVE (NEGATIVE); URINE RBC 2608 /uL (0-23.9); URINE UROBILINOGEN 0.2 mg/dL (0.2-1.0); URINE WBC 16 /uL (0-25.8)
[2023-05-02 13:21] LABS: INR 1.05 (0.83-1.09); PROTHROMBIN TIME (PATIENT) 12.2 SEC (9.7-13.0)
[2023-05-02 13:24] LABS: BASO % 0.6 % (0-2.0); HEMATOCRIT 39.9 % (32.4-45.2); MCH 26.9 pg (25.7-33.7); MCHC 32.5 g/dl (32.0-36.0); MEAN PLT VOLUME 8.5 fl (7.5-11.1); MONO % 5.5 % (3.8-10.2); NEUT % 38.9 % (42.8-82.8); PLATELET COUNT 332 10^3/uL (134-434); RBC 4.81 M/mm3 (3.60-5.2); RDW 14.7 % (11.6-15.6)
[2023-05-02 13:35] LABS: POTASSIUM 3.7 mmol/L (3.5-5.1)
[2023-05-02 13:38] LABS: ALBUMIN 3.6 g/dl (3.4-5.0); BLOOD UREA NITROGEN 10.4 mg/dL (7-18); CALCIUM 8.5 mg/dL (8.5-10.1)
[2023-05-02 13:41] LABS: CREATININE 0.9 mg/dL (0.55-1.3)
[2023-05-02 13:43] LABS: BILIRUBIN,TOTAL 0.4 mg/dL (0.2-1); TOT PROT 7.5 g/dl (6.4-8.2)
[2023-05-02 14:07] LABS: HCG,QUALITATIVE URINE Positive
== END 2023-05-02 18:14 | disposition home or self-care (01) ==
LOC: JER 11:10
DX: O20.0 Threatened abortion (principal); Z3A.22 22 weeks gestation of pregnancy
CPT/HCPCS: 36415; 76817-TC; 80053; 81003; 84702; 84703; 85025; 85610; 85730; 86850; 86900; 86901; 87086; 99284-25

== ENCOUNTER 2024-03-29 17:15 | Emergency (ER) | payer OTHER ==
[2024-03-29 17:22] VITALS: BP 135/85; PULSE 86; RESP 18; TEMP 98.4; BMI 28.2
[2024-03-29] MEDS ORDERED: KETOROLAC TROMETHAMINE 30 MG/1 ML VIAL ONE (18:31)
[2024-03-29] MEDS ORDERED: AMPICILLIN NA/SULBACTAM NA 3 GM/100 ML BAG IVPB ONE (18:33)
[2024-03-29] MEDS: AMPICILLIN NA/SULBACTAM NA 3 GM in SODIUM CHLORIDE 100 ML IVPB ONE (18:44)
[2024-03-29] MEDS: KETOROLAC TROMETHAMINE 30 MG/1 ML VIAL IVPUSH ONE (18:44)
== END 2024-03-29 20:25 | disposition home or self-care (01) ==
LOC: JER 17:15
PROC: 3E03329 Introduction of Other Anti-infective into Peripheral Vein, Percutaneous Approach (ICD-10-PCS; principal; 2024-03-29)
PROC: 3E0333Z Introduction of Anti-inflammatory into Peripheral Vein, Percutaneous Approach (ICD-10-PCS; 2024-03-29)
DX: S61.451A Open bite of right hand, initial encounter (principal); Y04.1XXA Assault by human bite, initial encounter
CPT/HCPCS: 73130-TC-RT-FY; 99284-25